=== PATIENT | female | born 1990 | race African-American/Black ===

== ENCOUNTER 2017-04-19 08:18 | Emergency (ER) | payer OTHER ==
[~2017-04-19] VITALS: Ht 162.6 cm; Wt 76.7 kg
[~2017-04-19 08:18] MED LIST: BENTYL10 MG PO; IBU800 MG PO; KEFLEX500 MG PO; REGLAN10 MG PO
--- NOTE | 2017-04-19 09:27 | ED GENERAL ADULT ---
History of Present Illness General Chief Complaint: Chest Pain Stated Complaint: CP Source: patient Exam Limitations: no limitations Vital Signs & Intake/Output Vital Signs & Intake/Output Vital Signs Date Time Temp Pulse Resp B/P B/P Pulse O2 O2 Flow FiO2 Mean Ox Delivery Rate 04/19 1023 99.0 75 20 121/74 96 Room Air 04/19 0826 98.2 80 20 122/80 96 Room Air Allergies Coded Allergies: aspirin (Severe, THROAT CLOSURE 04/19/17) Reconcile Medications Ibuprofen 800 MG TABLET 1 TAB PO TID PRN PAIN Methocarbamol (Robaxin) 500 MG TABLET 1 TAB PO TID PRN MUSCLE SPASMS Triage Note: PT TO ED C/O SUDDEN ONSET OF CHEST PAIN YESTERDAY AM AROUND 1000 WHILE DOING DISHES. STATES IT IS CONSTANT AND HASN'T GONE AWAY SINCE. DENIES N/V/D. PT ALSO C/O B/L ARM PAIN STARTING MID DAY YESTERDAY, PT STATES SHE IS UNABLE TO LIFT HER ARMS UP. EKG DONE. Triage Nurses Notes Reviewed? yes Onset: Gradual Duration: hour(s): (24) Timing: no prior history Injury Environment: home Severity: moderate Modifying Factors: Improves With: immobilization. Worsens With: movement. : No Patient currently breastfeeds: No HPI: Patient is a 26-year-old female with history of drug department with chief complaint of chest wall pain started around 10 AM yesterday morning while she was doing dishes. She denies any recent heavy lifting or trauma. No recent cough or illness. No recent fevers. Denies any congestion. Palpation and certain positions makes the pain worse. Has not been taking any medications to help her symptoms. Denies any nausea vomiting fevers or chills. No palpitations. Has been eating and drinking without difficulty. No abdominal pain. Denies urinary symptoms. No constipation. Denies any recent illness. No fevers. She is currently taking Depo-Provera for control. No history of blood clots. Denies any coughing. No hemoptysis. (HARRIS CARDENAS) Past History Travel History Traveled to [place] past 21 day No Medical History Any Pertinent Medical History? see below for history Neurological: NONE EENT: NONE Cardiovascular: NONE Respiratory: NONE Gastrointestinal: NONE Hepatic: NONE Renal: NONE Musculoskeletal: NONE Psychiatric: NONE Endocrine: NONE Blood Disorders: NONE Cancer(s): NONE ASSEMBLY INSPECTOR/Reproductive: NONE Surgical History Surgical History: N Psychosocial History What is your primary language [place] Tobacco Use: Never used ETOH Use: denies use Illicit Drug Use: denies illicit drug use Family History Hx Contributory? No (HARRIS CARDENAS) Review of Systems Review of Systems Constitutional: Reports: no symptoms. Comments Review of systems: See HPI, All other systems negative. Constitutional, no chills fever or weight loss HEENT: No visual changes no sore throat no congestion Cardiovascular: palpitation , orthopnea or ankle swelling Skin, no jaundice no rashes Respiratory: No dyspnea cough sputum or hemoptysis GI: No nausea no vomiting : No dysuria No hematuria Muscle skeletal: no back pain, no neck pain, Neurologic: No numbness no confusion no headaches Psych: No stress anxiety or depression,. Heme/endocrine: No bruising no bleeding no polyuria or polydipsia Immunology: No splenectomy or history of AIDS (HARRIS CARDENAS) Physical Exam Physical Exam General Appearance: well developed/nourished, no apparent distress, alert, awake , comfortable Comments: Well-developed well-nourished person in no acute distress HEENT: Pupils equally round and reactive to light and accommodation. Nose is atraumatic. Neck: Normal inspection Cardiovascular: Regular rate and rhythms no murmurs rubs or gallops, normal JVP Respiratory: Chest is tender to palpation over the sternum, no rashes or ecchymosis noted on visual inspection. No respiratory distress.breath sounds clear to auscultation bilaterally Abdomen: Soft, nontender nondistended, no appreciable organomegaly. Normal bowel sounds. No ascites, no rebound or guarding. Extremity: No edema, no calf tenderness to palpation, normal and equal pulses. Neuro: Alert oriented x3 Skin: No appreciable rash on exposed skin, skin is warm and dry. Psych: Mood and affect is normal, memory and judgment is normal. Core Measures ACS in differential dx? Yes CVA/TIA Diagnosis: No Severe Sepsis Present: No Septic Shock Present: No (HARRIS CARDENAS) Progress Differential Diagnoses I considered the following diagnoses in my evaluation of the patient: Costochondritis, pleurisy, pulmonary embolism, fracture, pneumothorax, pneumonia , ACS Plan of Care: Orders Procedure Date/time Status D-DIMER 04/19 09 Complete TROPONIN LEVEL 07/18 0904 Complete LIPASE 04/19 904 Complete COMPREHENSIVE METABOLIC PANEL 04/19 904 Complete CBC WITHOUT DIFFERENTIAL 04/19 904 Complete EKG 04/19 819 Active Laboratory Tests 04/19/17 0947: Anion Gap 9, Estimated GFR > 60, BUN/Creatinine Ratio 10.0, Glucose 80, Calcium 9.5, Total Bilirubin 0.5, AST 15, ALT 23, Alkaline Phosphatase 60, Troponin I < 0.01, Total Protein 7.3, Albumin 4.0, Globulin 3.3, Albumin/Globulin Ratio 1.2, Lipase 66, D-Dimer High Sensitivty < 200, CBC w Diff NO MAN DIFF REQ, RBC 4.60, MCV 77.4 L, MCH 24.7 L, RDW 14.0, MPV 9.2, Gran % 63.8, Lymphocytes % 28.7, Monocytes % 3.5, Eosinophils % 3.6, Basophils % 0.4, Absolute Granulocytes 3.5, Absolute Lymphocytes 1.6, Absolute Monocytes 0.2, Absolute Eosinophils 0.2, Absolute Basophils 0, PUBS MCHC 31.9 L Diagnostic Imaging: Viewed by Me: Radiology Read. Discussed w/RAD: Radiology Read. CXR Impression: PATIENT: HE LI PRESENT AGE: 26 PATIENT ACCOUNT NO: [id number] : 88 LOCATION: [facility] ORDERING PHYSICIAN: HARRIS GONZALES SERVICE DATE: 04/19/17 EXAM TYPE: RAD - XRY-CHEST XRAY, PA AND LATERAL EXAMINATION: XR CHEST CLINICAL INFORMATION: Chest pain. COMPARISON: None TECHNIQUE: 2 views of the chest were obtained. FINDINGS: The lungs are clear. There is no pneumothorax, airspace consolidation, pleural reaction, or effusion. The heart is normal in size. The hilar and mediastinal contours and visualized bony structures are unremarkable. IMPRESSION: Normal chest. DICTATED BY: SAHARA LEDEZMA MD DATE/TIME DICTATED:04/19/171054 CLINICAL PROGRAM CONSULTANT:CHRIS DATE/TIME TRANSCRIBED:04/19/171054 CONFIDENTIAL, DO NOT COPY WITHOUT APPROPRIATE AUTHORIZATION. <Electronically signed in Other Vendor System> SIGNED BY: SAHARA LEDEZMA MD 04/19/17 1101 Initial ED EKG: NSR (75 BPM) Comments: Patient reports symptoms have been constant for the past 24 hours. D-dimer and troponin are negative. EKG is normal sinus. Patient has significant reproducible pain over the sternum. Negative x-ray. History of costochondritis. Due to age, lack of risk factors, no need for second troponin or EKG 3 hours from the first. Patient educated on signs and symptoms return. Patient will be started on anti-inflammatories and muscle relaxers. Discussed with and he is in agreement with plan. Patient was seen by Dr. Gonzalez as well prior to discharge. She is educated on signs and symptoms to return. (HARRIS CARDENAS) Departure Departure Time of Disposition: 1110 Disposition: HOME OR SELF CARE Condition: Stable Clinical Impression Primary Impression: Chest wall pain Referrals: PATIENT HAS NO PRIMARY CARE DR (PCP/Family) Additional Instructions: Follow-up with your primary care physician call to make an appointment. Avoid heavy lifting. Take anti-inflammatories and muscle relaxers as prescribed. Apply warm ankle compresses to affected area. Return for worsening symptoms or concerns. Departure Forms: Customer Survey General Discharge Information Prescriptions: Current Visit Scripts Methocarbamol (Robaxin) 1 TAB PO TID PRN MUSCLE SPASMS #15 TAB Ibuprofen 1 TAB PO TID PRN PAIN #20 TAB (HARRIS CARDENAS) PA/ASSOCIATE DRAFTER Co-Sign Statement Statement: ED Attending supervision documentation- [x] I saw and evaluated the patient. I have also reviewed all the pertinent lab results and diagnostic results. I agree with the findings and the plan of care as documented in the PA's/ASSOCIATE DRAFTER's documentation. [] I have reviewed the ED Record and agree with the PA's/ASSOCIATE DRAFTER's documentation. [] Additions or exceptions (if any) to the PAs/ASSOCIATE DRAFTER's note and plan are summarized below: [] I've seen and personally examined the patient. She has anterior chest wall tenderness. She has a history of prior costochondritis. She lifts her child and thinks this may be the cause of the chest wall pain. EKG troponin and d- dimer are all unremarkable. (JESSICA GONZALEZ DO) Critical Care Note Critical Care Note Critical Care Time: non-applicable (HARRIS CARDENAS)
[2017-04-19 10:04] LABS: ABSOLUTE BASOPHIL COUNT 0 /CUMM (0.0-0.2); ABSOLUTE EOSINOPHIL COUNT 0.2 /CUMM (0.0-0.7); ABSOLUTE GRANULOCYTE CT 3.5 /CUMM (1.4-6.5); ABSOLUTE LYMPH COUNT 1.6 /CUMM (1.2-3.4); ABSOLUTE MONOCYTE COUNT 0.2 /CUMM (0.10-0.60); BASOPHIL % 0.4 % (0.0-2.0); EOSINOPHIL % 3.6 % (0-5); GRANULOCYTE % 63.8 % (42.2-75.2); HEMATOCRIT 35.6 % (37-47); MEAN CORPUSCULAR HGB 24.7 PG (27.0-31.0); MEAN CORPUSCULAR HGB CONC 31.9 G/DL (33.0-37.0); MEAN CORPUSCULAR VOLUME 77.4 FL (81.0-99.0); MEAN PLATELET VOLUME 9.2 FL (7.4-10.4); PLATELET COUNT 233 /CUMM (130-400); WHITE BLOOD CELL COUNT 5.6 /CUMM (4.8-10.8)
[2017-04-19 10:23] VITALS: BP 121/74
--- NOTE | 2017-04-19 11:01 | RADIOLOGY REPORT ---
EXAMINATION: XR CHEST CLINICAL INFORMATION: Chest pain. COMPARISON: None TECHNIQUE: 2 views of the chest were obtained. FINDINGS: The lungs are clear. There is no pneumothorax, airspace consolidation, pleural reaction, or effusion. The heart is normal in size. The hilar and mediastinal contours and visualized bony structures are unremarkable. IMPRESSION: Normal chest.
[2017-04-19] MEDS ORDERED: ROBAXIN500 M1 PO (11:13)
[2017-04-19] MEDS ORDERED: IBUPROFEN800 M1 PO (11:13)
== END 2017-04-19 11:10 ==
LOC: ERH 08:18
PROVIDERS: Physician Assistant
DX: R07.89 Other chest pain (principal)
CPT/HCPCS: 93005; 93010; 96372; J1885

== ENCOUNTER 2017-10-28 20:35 | Emergency (ER) | payer OTHER ==
[~2017-10-28] VITALS: Ht 167.6 cm; Wt 63.5 kg
[~2017-10-28 20:35] MED LIST changes: +AFRIN30 ML NASB; +CYCLOBENZAPRINE10 M1 PO; +IBUPROFEN600 M1 PO; +IBUPROFEN800 M1 PO; +ROBAXIN500 M1 PO; +TAMIFLU75 M1 PO; +TESSALON PERLE100 M1 PO; +ZOFRAN ODT4 M1 SL
[2017-10-28 20:40] VITALS: BP 130/75
== END 2017-10-28 23:53 | disposition admitted as inpatient to this hospital (09) ==
LOC: ERH 20:35
DX: R10.9 Unspecified abdominal pain (principal); R11.2 Nausea with vomiting, unspecified
CPT/HCPCS: 81001; 81025; 99281